=== PATIENT | female | born 1995 | race Caucasian/White ===

== ENCOUNTER 2022-03-15 08:02 | Outpatient (CLI) | payer OTHER, SELFPAY | END 2022-03-15 08:03 | disposition home or self-care (01) | LOC: OP CLINIC 08:06 | PROVIDERS: PCP Family Medicine; Visit Provider Internal Medicine Gastroenterology | DX: R19.7 Diarrhea, unspecified (principal) | CPT/HCPCS: 45380; 88305; J2704 ==

== ENCOUNTER 2022-03-15 08:43 | Outpatient (CLI) | payer OTHER, SELFPAY ==
--- NOTE | 2022-03-15 09:34 | W.ANESCHARGE ---
Anesthesia Charges Start Date/Time Anesthesia Start Date: 03/15/22 Anesthesia Start Time: 08:55 Stop Date/Time Anesthesia Stop Date: 03/15/22 Anesthesia Stop Time: : Summary Emergency: No
--- NOTE | 2022-03-15 09:37 | W.ANESCHARGE ---
Anesthesia Charges Start Date/Time Anesthesia Start Date: 03/15/22 Anesthesia Start Time: 08:55 Stop Date/Time Anesthesia Stop Date: 03/15/22 Anesthesia Stop Time: : Summary Emergency: No
--- NOTE | 2022-03-15 09:39 | W.ANESCHARGE ---
Anesthesia Charges Start Date/Time Anesthesia Start Date: 03/15/22 Anesthesia Start Time: 08:55 Stop Date/Time Anesthesia Stop Date: 03/15/22 Anesthesia Stop Time: : Summary Emergency: No
== END 2022-03-15 08:44 | disposition home or self-care (01) ==
PROVIDERS: PCP Family Medicine; Visit Provider Internal Medicine Gastroenterology
DX: R19.7 Diarrhea, unspecified (principal)
CPT/HCPCS: 00811; 00812; 45380; 88305; J2704